=== PATIENT | female | born 1980 | race Hispanic/Latino ===

== ENCOUNTER 2018-03-04 08:36 | Emergency (ER) | payer MEDICAID, OTHER ==
[2018-03-04 09:18] LABS: BASOPHILS % (AUTO) 0.7 % (0.0-5.0); HEMATOCRIT 41.2 % (36-48); LYMPHOCYTES % (AUTO) 15.7 % (21.0-51.0); MEAN CORPUSCULAR HEMOGLOBIN 30.6 pg (27.0-33.0); MONOCYTES % (AUTO) 3.6 % (3.0-13.0); PLATELET COUNT (AUTO) 300 K/uL (130-400); RED BLOOD CELL COUNT(AUTO) 4.58 MIL/uL (4.00-5.50); RED CELL DISTRIBUTION WIDTH 13.5 % (11.0-15.5); WHITE BLOOD COUNT (AUTO) 12.5 K/uL (4.8-10.8)
[2018-03-04 09:25] LABS: CREATININE 0.9 mg/dL (0.5-1.5)
[2018-03-04 09:29] LABS: ALBUMIN 2.9 g/dL (3.5-5.0); BILIRUBIN,TOTAL 0.3 mg/dL (0.2-1.0); TOTAL PROTEIN, SERUM 7.4 g/dL (6.0-8.3)
[2018-03-04] MEDS ORDERED: ONDANSETRON HCL 4 MG/2 ML VIAL ONE (09:37)
[2018-03-04] MEDS ORDERED: KETOROLAC TROMETHAMINE 30MG/ML ONE (09:38)
[2018-03-04] MEDS ORDERED: SODIUM CHLORIDE 0.9% 1000ML 1,000 ML IV ONE (09:38)
[2018-03-04 09:54] LABS: APPEARANCE,URINE Turbid (CLEAR); BILIRUBIN,URINE Small (NEGATIVE); COLOR,URINE Red (YELLOW); GLUCOSE, URINE (UA) Negative (NEGATIVE); KETONES,URINE Negative (NEGATIVE); LEUKOCYTE ESTERASE ,URINE Small (NEGATIVE); NITRATE,URINE Negative (NEGATIVE); OCCULT BLOOD,URINE Large (NEGATIVE); PROTEIN,URINE POS 2+ (NEGATIVE); UROBILINOGEN,URINE 0.2 mg/dL (0.2-1.0)
[2018-03-04 10:04] LABS: BACTERIA,URINE Few /HPF (None Seen); RBC,URINE TNTC /HPF (0-1); SQUAMOUS EPITHELIAL CELL,UR Few /HPF (0-2)
== END 2018-03-04 11:41 | disposition home or self-care (01) ==
LOC: EDH 08:36
DX: N20.1 Calculus of ureter (principal); Z72.0 Tobacco use; Z98.51 Tubal ligation status; Z98.890 Other specified postprocedural states
CPT/HCPCS: 36415; 74176; 80053; 81001; 81025; 85025; 99285; J1885; J2405; J7030

== ENCOUNTER 2018-05-26 21:41 | Emergency (ER) | payer OTHER ==
[2018-05-26] MEDS ORDERED: ACETAMINOPHEN EXTRA STRENGTH 500 MG TABLET ONE (22:01)
[2018-05-26] MEDS ORDERED: AMOXICILLIN 500 MG CAPSULE PO ONE (22:02)
[2018-05-26] MEDS ORDERED: TRAMADOL HCL 50 MG TABLET ONE (22:02)
== END 2018-05-26 22:56 | disposition home or self-care (01) ==
LOC: EDH 21:41
DX: K08.89 Other specified disorders of teeth and supporting structures (principal); Z72.0 Tobacco use

== ENCOUNTER 2018-08-01 17:25 | Emergency (ER) | payer SELFPAY ==
[2018-08-01] MEDS ORDERED: TRAMADOL HCL 50 MG TABLET ONE (17:49)
== END 2018-08-01 17:55 | disposition home or self-care (01) ==
LOC: EDH 17:25
DX: K02.9 Dental caries, unspecified (principal); Z72.0 Tobacco use

== ENCOUNTER 2018-10-22 11:09 | Emergency (ER) | payer SELFPAY ==
[2018-10-22 12:46] LABS: RAPID GROUP A STREP NEGATIVE (NEGATIVE)
== END 2018-10-22 13:06 | disposition home or self-care (01) ==
LOC: EDH 11:09
DX: J06.9 Acute upper respiratory infection, unspecified (principal); R51 Headache; H92.09 Otalgia, unspecified ear; Z98.51 Tubal ligation status; Z72.0 Tobacco use
CPT/HCPCS: 87804; 87880

== ENCOUNTER 2018-12-10 14:45 | Emergency (ER) | payer SELFPAY ==
[2018-12-10] MEDS ORDERED: CEPHALEXIN 500 MG CAPSULE ONE (15:15)
[2018-12-10] MEDS ORDERED: KETOROLAC TROMETHAMINE 60 MG/2 ML VIAL ONE (15:16)
[2018-12-10] MEDS ORDERED: SULFAMETHOX-TMP DS 800/160 TAB ONE (15:16)
== END 2018-12-10 16:11 | disposition home or self-care (01) ==
LOC: EDH 14:45
DX: L03.116 Cellulitis of left lower limb (principal); Z98.51 Tubal ligation status; Z72.0 Tobacco use; Z98.890 Other specified postprocedural states
CPT/HCPCS: 96372; 99283; J1885

== ENCOUNTER 2020-07-21 15:04 | Emergency (ER) | payer OTHER, SELFPAY ==
[2020-07-21 15:32] LABS: APPEARANCE,URINE CLOUDY (CLEAR); BILIRUBIN,URINE NEGATIVE (NEGATIVE); COLOR,URINE YELLOW (YELLOW); GLUCOSE, URINE (UA) NEGATIVE (NEGATIVE); KETONES,URINE NEGATIVE (NEGATIVE); LEUKOCYTE ESTERASE ,URINE NEGATIVE (NEGATIVE); NITRATE,URINE POSITIVE (NEGATIVE); OCCULT BLOOD,URINE NEGATIVE (NEGATIVE); PROTEIN,URINE NEGATIVE (NEGATIVE)
[2020-07-21 15:36] LABS: BASOPHILS % (AUTO) 0.6 % (0.0-5.0); EOSINOPHILS % (AUTO) 2.1 % (0.0-8.0); HEMATOCRIT 43.3 % (36-48); LYMPHOCYTES % (AUTO) 32.3 % (21.0-51.0); MEAN CORPUSCULAR HGB CONC 33.5 g/dL (32.0-36.0); MEAN CORPUSCULAR VOLUME 89.5 fL (79-99); MONOCYTES % (AUTO) 8.2 % (3.0-13.0); NEUTROPHILS % (AUTO) 56.6 % (40.0-77.0); PLATELET COUNT (AUTO) 403 K/uL (130-400); RED BLOOD CELL COUNT(AUTO) 4.84 MIL/uL (4.00-5.50); RED CELL DISTRIBUTION WIDTH 13.8 % (11.0-15.5); WHITE BLOOD COUNT (AUTO) 8.9 K/uL (4.8-10.8)
[2020-07-21 15:39] LABS: HCG,QUAL RESULT NEGATIVE (NEGATIVE)
[2020-07-21 15:41] LABS: AMPHET/METH SCREEN,URINE NEGATIVE (NEGATIVE); BARBITURATE SCREEN, URINE NEGATIVE (NEGATIVE); BENZODIAZEPINES SCREEN,URINE NEGATIVE (NEGATIVE); CANNABINOID SCREEN,URINE NEGATIVE (NEGATIVE); COCAINE SCREEN,URINE POSITIVE (NEGATIVE); OPIATE SCREEN,URINE NEGATIVE (NEGATIVE); PHENCYCLIDINE SCREEN,URINE NEGATIVE (NEGATIVE)
[2020-07-21 15:50] LABS: BACTERIA,URINE Moderate /HPF (None Seen); RBC,URINE 0-1 /HPF (0-1)
[2020-07-21 15:51] LABS: SQUAMOUS EPITHELIAL CELL,UR Few /HPF (0-2)
[2020-07-21 15:54] LABS: CARBON DIOXIDE 31 mmol/L (21-32); CHLORIDE 102 mmol/L (101-111); GLOMERULAR FILTR. RATE CALC 66 mL/min (>60); GLUCOSE,RANDOM 61 mg/dL (70-105); POTASSIUM 4.4 mmol/L (3.5-5.1); SODIUM SERUM 139 mmol/L (136-145); UREA NITROGEN, BLOOD 14 mg/dL (7-18)
[2020-07-21 15:59] LABS: ALANINE AMINOTRANSFERASE 23 U/L (12-78); ALBUMIN 3.5 g/dL (3.5-5.0); ALCOHOL, BLOOD < 3 mg/dL (0-10); ASPARTATE AMINOTRANSFERASE 15 U/L (10-37); BILIRUBIN,TOTAL 0.2 mg/dL (0.2-1.0); TOTAL PROTEIN, SERUM 8.6 g/dL (6.0-8.3)
[2020-07-21 16:00] LABS: ACETAMINOPHEN < 1 mcg/mL (10-30)
== END 2020-07-21 19:16 | disposition home or self-care (01) ==
LOC: EDH 15:04
DX: R45.851 Suicidal ideations (principal); F14.10 Cocaine abuse, uncomplicated; Z20.822 Contact with and (suspected) exposure to COVID-19; Z98.890 Other specified postprocedural states
CPT/HCPCS: 36415; 80053; 80305; 81001; 81025; 85025; 87077; 87088; 87186; 87426; 99283; U0003